=== PATIENT | female | born 1960 | race Caucasian/White ===

== ENCOUNTER 2019-12-13 14:29 | Emergency (ER) | payer OTHER, SELFPAY ==
[~2019-12-13] VITALS: Ht 160 cm; Wt 95.7 kg
[2019-12-13 14:42] VITALS: Ht 160 cm; Wt 95.7 kg
[2019-12-13 18:50] VITALS: BP 98/62
== END 2019-12-13 18:51 | disposition home or self-care (01) ==
LOC: ED 14:29
DX: U07.1 COVID-19 (principal); J12.89 Other viral pneumonia
CPT/HCPCS: J1885; Q0092; U0003-CS